=== PATIENT | male | born 1995 | race Caucasian/White ===

== ENCOUNTER 2021-05-28 17:24 | Emergency (ER) | payer OTHER ==
[2021-05-28] MEDS ORDERED: dexAMETHasone 10 MG/ML VIAL ONE (18:03)
[2021-05-28] MEDS ORDERED: NA CHLORIDE 0.9% 500 ML ONE (18:03)
[2021-05-28] MEDS ORDERED: DIPHENHYDRAMINE 50 MG/ML VIAL ONE (18:03)
[2021-05-28] MEDS ORDERED: METOCLOPRAMIDE 10 MG/2mL INJ ONE (18:03)
[2021-05-28 18:41] LABS: Absolute Lymphocytes (CBC) 1.5 K/uL (0.7-4.9); Basophils % 0.3 % (0-1.3); Hematocrit 46.2 % (39.6-49.0); Lymphocytes % 26.9 % (15.3-44.8); MPV 7.4 fL (7.6-11.3); RBC Red Blood Cell Count 5.23 M/uL (4.33-5.43)
--- NOTE | 2021-05-28 19:01 | RAD REPORT ---
EXAM DESCRIPTION: CT - Head Brain Wo Cont - 05/28/2021 6:55 pm CLINICAL HISTORY: headache, syncope COMPARISON: No comparisons TECHNIQUE: All CT scans are performed using dose optimization technique as appropriate and may inclu de automated exposure control or mA/KV adjustment according to patient size. FINDINGS: No intracranial hemorrhage, hydrocephalus or extra-axial fluid collection.No areas of brai n edema or evidence of midline shift. The paranasal sinuses and mastoids are clear. The calvarium is intact. IMPRESSION: No acute intracranial abnormality.
--- NOTE | 2021-05-28 19:01 | RAD REPORT ---
EXAM DESCRIPTION: RAD - Chest Single View - 05/28/2021 6:37 pm CLINICAL HISTORY: syncope COMPARISON: No comparisons FINDINGS: Lines: None. Lungs: No evidence of edema or pneumonia. Pleural: No significant pleural effusions or pneumothorax. Cardiac: The heart size is within normal limits. Bones: No acute fractures. Other: IMPRESSION: No acute cardiopulmonary disease.
[2021-05-28 19:14] LABS: ALT/SGPT 36 U/L (12-78); AST/SGOT 17 U/L (15-37); Albumin 3.9 g/dL (3.4-5.0); Alkaline Phosphatase 55 U/L (45-117); BUN Blood Urea Nitrogen 13 mg/dL (7-18); Bicarbonate 28 mmol/L (21-32); Bilirubin Direct 0.2 mg/dL (0-0.2); Bilirubin Total 0.6 mg/dL (0.2-1.0); Glucose Level 100 mg/dL (74-106); Magnesium 2.1 mg/dL (1.8-2.4); Potassium 4.3 mmol/L (3.5-5.1); Protein, Total 7.3 g/dL (6.4-8.2); Sodium Level 143 mmol/L (136-145); Troponin (Emerg Dept Use Only) < 0.02 ng/mL (0.0-0.045)
[2021-05-28 19:29] LABS: NT PRO-BNP < 5 pg/mL (<125)
--- NOTE | 2021-05-28 19:54 | RAD REPORT ---
EXAM DESCRIPTION: CT - Head angio - 05/28/2021 7:48 pm CLINICAL HISTORY: headache, syncope COMPARISON: <Comparisons> TECHNIQUE: CT angiography of the head was performed with MIPs. All CT scans are performed using dose optimization technique as appropriate and may include automated exposure control or mA/KV adjustment according to patient size. FINDINGS: Anterior circulation: No aneurysm or large vessel occlusion. No hemodynamically significant stenosis. No arteriovenous malf ormation identified. Posterior circulation: No aneurysm or large vessel occlusion. No hemodynamically significant stenosis. No arteriovenous malf ormation identified. IMPRESSION: No significant flow abnormality is detected.
--- NOTE | 2021-05-28 21:10 | EDPHYS ---
Physician Documentation [facility] Name: Adonis Covarrubias Age: 25 yrs Sex: Male : 1995 Arrival Date: 05/28/2021 Time: 17:26 Bed 15 Private MD: ED Physician Reggie Redd HPI: 05/28 17:55 This 25 yrs old Male presents to ER via Ambulatory with complaints of Passed jmm Out Prior To Arrival, Headache. 17:55 Onset: The symptoms/episode began/occurred acutely, just prior to arrival. Associated jmm injury: The patient did not suffer any apparent associated injury. Current symptoms: headache, that is severe. The patient has not experienced similar symptoms in the past. This this is a 25-year-old male with a history of migraines and presents emerged part with complaints of left retro-orbital headache which has been ongoing for the past few days but patient states that he passed out just prior to arrival and this is never occurred to him in the past. Patient states having a family history of aneurysms.. Historical: - Allergies: 17:39 No Known Allergies; ll1 - PMHx: 17:39 migraines; ll1 - Immunization history:: Adult Immunizations up to date, Client reports having NOT received the Covid vaccine. Flu vaccine status is unknown. - Social history:: Smoking status: Patient reports the use of cigarette tobacco products, smokes one pack cigarettes per day. Reported history of juuling and/or vaping. ROS: 17:55 Constitutional: Negative for fever, chills, and weight loss, Cardiovascular: Negative jmm for chest pain, palpitations, and edema, Respiratory: Negative for shortness of breath, cough, wheezing, and pleuritic chest pain. 17:55 Neuro: Positive for headache, syncope. 17:55 All other systems are negative. Exam: 17:55 Constitutional: This is a well developed, well nourished patient who is awake, alert, jmm and in no acute distress. Head/Face: atraumatic. Eyes: EOMI, no conjunctival erythema appreciated ENT: Moist Mucus Membranes Neck: Trachea midline, Supple Chest/axilla: Normal chest wall appearance and motion. Cardiovascular: Regular rate and rhythm. No edema appreciated Respiratory: Normal respirations, no respiratory distress appreciated Abdomen/GI: Non distended, soft Back: Normal ROM Skin: General appearance color normal MS/ Extremity: Moves all extremities, no obvious deformities appreciated, no edema noted to the lower extremities Neuro: Awake and alert, normal gait Psych: Behavior is normal, Mood is normal, Patient is cooperative and pleasant Vital Signs: 17:37 BP 135 / 81; Pulse 78; Resp 17; Temp 98.0; Pulse Ox 97% ; Weight 74.84 kg; Height 5 ft. ll1 10 in. (177.80 cm); Pain 8/10; 18:54 BP 117 / 76; Pulse 75; Resp 17; Pulse Ox 98% on R/A; jt3 19:38 BP 110 / 66; Pulse 88; Resp 20; Temp 98.0(O); Pulse Ox 99% on R/A; Pain 2/10; kc4 21:25 BP 118 / 78; Pulse 80; Resp 20; Temp 98.7; Pulse Ox 99% on R/A; Pain 0/10; kc4 17:37 Body Mass Index 23.67 (74.84 kg, 177.80 cm) ll1 MDM: 17:55 Patient medically screened. [facility] 21:08 Data reviewed: vital signs, nurses notes. Counseling: I had a detailed discussion with latesha the patient and/or guardian regarding: the historical points, exam findings, and any diagnostic results supporting the discharge/admit diagnosis, lab results, the need for outpatient follow up, to return to the emergency department if symptoms worsen or persist or if there are any questions or concerns that arise at home. ED course: Patient states feeling much better. I do not currently suspect subarachnoid or meningitis. Most likely cluster headache. Patient will be given follow-up information for neurology and otherwise given strict return precautions. Patient understood agrees plan of care.. 05/28 17:55 Order name: Basic Metabolic Panel; Complete Time: 19:49 [facility] 05/28 17:55 Order name: CBC with Diff; Complete Time: 18:53 [facility] 05/28 17:55 Order name: LFT's; Complete Time: 19:49 [facility] 05/28 17:55 Order name: Magnesium; Complete Time: 19:49 [facility] 05/28 17:55 Order name: NT PRO-BNP; Complete Time: 19:49 [facility] 05/28 17:55 Order name: PT-INR; Complete Time: 19:04 [facility] 05/28 17:55 Order name: Troponin (emerg Dept Use Only); Complete Time: 19:49 [facility] 05/28 17:55 Order name: XRAY Chest (1 view); Complete Time: 19:04 [facility] 05/28 17:55 Order name: D-Dimer; Complete Time: 19:04 [facility] 05/28 17:55 Order name: CT Head Brain wo Cont; Complete Time: 19:04 [facility] 05/28 19:18 Order name: CT Head Angio; Complete Time: 19:57 [facility] 05/28 17:55 Order name: EKG; Complete Time: 17:56 [facility] 05/28 17:55 Order name: Cardiac monitoring; Complete Time: 18:27 [facility] 05/28 17:55 Order name: EKG - Nurse/Tech; Complete Time: 18:27 [facility] 05/28 17:55 Order name: IV Saline Lock; Complete Time: 18:28 [facility] 05/28 17:55 Order name: Labs collected and sent; Complete Time: 18:28 [facility] 05/28 17:55 Order name: O2 Per Protocol; Complete Time: 18:28 [facility] 05/28 17:55 Order name: O2 Sat Monitoring; Complete Time: 18:28 [facility] Administered Medications: 18:25 Drug: NS 0.9% 500 ml Route: IV; Rate: bolus; Site: left antecubital; jt3 21:28 Follow up: Response: No adverse reaction; IV Status: Completed infusion kc4 18:25 Drug: Reglan (metoCLOPramide) 20 mg Route: IVP; Site: left antecubital; jt3 21:28 Follow up: Response: No adverse reaction kc4 18:25 Drug: diphenhydrAMINE 12.5 mg Route: IVP; Site: left antecubital; jt3 21:28 Follow up: Response: No adverse reaction kc4 18:25 Drug: Decadron - Dexamethasone 10 mg Route: IVP; Site: left antecubital; jt3 21:27 Follow up: Response: No adverse reaction kc4 Disposition: 05/29 07:06 Co-signature as Attending Physician, Reggie Redd MD I agree with the assessment and rn plan of care. Attestation: The patient's history, exam findings, diagnostics, and a summary of any interventions or procedures was reviewed in detail with Cornelius BAHENA. Disposition Summary: 05/28/21 21:09 Discharge Ordered Location: Home jm Condition: Stable jmm Diagnosis - Headache jmm Followup: jm - With: Francis Hoffman MD - When: 2 - 3 days - Reason: Recheck today's complaints, Continuance of care, Re-evaluation by your physician Discharge Instructions: - Discharge Summary Sheet jmm - Migraine Headache jmm Forms: - Medication Reconciliation Form jm - Thank You Letter jmm - Antibiotic Education jmm - Prescription Opioid Use jm Signatures: Dispatcher [employer] EDCornelius Manriquez PA PA jmm Reggie Redd MD MD rn Lewis, Lynsay, RN RN ll1 Gorge Elizabeth RN RN jt3 Teressa Garza 4
--- NOTE | 2021-05-28 21:10 | ER ---
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 Migraines worse than usual for 2 ll[address] weeks, [address] worse today. L eye blurred vision. Coronavirus screen: Vaccine status: Patient reports being unvaccinated. Client denies travel out of the [place] in the last 14 days. Ebola Screen: Patient denies travel to an Ebola-affected area in the 21 days before illness onset. Initial Sepsis Screen: Does the patient meet any 2 criteria? No. Patient's initial sepsis screen is negative. Does the patient have a suspected source of infection? No. Patient's initial sepsis screen is negative. Risk Assessment: Do you want to hurt yourself or someone else? Patient reports no desire to harm self or others. Onset of symptoms was May 14, 2020. 17:37 Method Of Arrival: Ambulatory ll1 17:37 Acuity: MATTHEW 3 ll1 19:43 Note pt transported to CT for CT angio. kc4 Triage Assessment: 21:26 Headache History: Other No headache noted. General: Appears in no apparent distress. kc4 comfortable. Pain: Also complains of no other associated symptoms. Historical: - Allergies: 17:39 No Known Allergies; ll1 - PMHx: 17:39 migraines; ll1 - Immunization history:: Adult Immunizations up to date, Client reports having NOT received the Covid vaccine. Flu vaccine status is unknown. - Social history:: Smoking status: Patient reports the use of cigarette tobacco products, smokes one pack cigarettes per day. Reported history of juuling and/or vaping. Screenin:26 Abuse screen: Denies threats or abuse. Denies injuries from another. Nutritional jt3 screening: No deficits noted. Tuberculosis screening: No symptoms or risk factors identified. Fall Risk None identified. Assessment: 18:26 General: Appears in no apparent distress. Behavior is calm, cooperative. Pain: jt3 Complains of pain in face Pain does not radiate. Pain currently is 8 out of 10 on a pain scale. Quality of pain is described as throbbing, Pain began 2-3 days ago. Neuro: Reports headache in entire a syncopal episode. Cardiovascular: No deficits noted. Respiratory: No deficits noted. GI: No deficits noted. 18:55 Reassessment: Patient states feeling better. Patient states symptoms have improved. jt3 Vital Signs: 17:37 BP 135 / 81; Pulse 78; Resp 17; Temp 98.0; Pulse Ox 97% ; Weight 74.84 kg; Height 5 ft. ll1 10 in. (177.80 cm); Pain 8/10; 18:54 BP 117 / 76; Pulse 75; Resp 17; Pulse Ox 98% on R/A; jt3 19:38 BP 110 / 66; Pulse 88; Resp 20; Temp 98.0(O); Pulse Ox 99% on R/A; Pain 2/10; kc4 21:25 BP 118 / 78; Pulse 80; Resp 20; Temp 98.7; Pulse Ox 99% on R/A; Pain 0/10; kc4 17:37 Body Mass Index 23.67 (74.84 kg, 177.80 cm) ll1 ED Course: 17:26 Patient arrived in ED. as 17:37 Arm band placed on. ll1 17:39 Triage completed. 1 17:51 Cornelius Rouse PA is PHCP. [facility] 17:51 Reggie Redd MD is Attending Physician. [facility] 17:56 Gorge Elizabeth, RN is Primary Nurse. jt3 18:26 Patient has correct armband on for positive identification. Bed in low position. Call jt3 light in reach. Side rails up X2. 18:26 No provider procedures requiring assistance completed. Inserted saline lock: 20 gauge jt3 in left antecubital area, using aseptic technique. Blood collected. 18:37 XRAY Chest (1 view) In Process Unspecified. EDMS 18:38 EKG done, by ED staff, reviewed by Cornelius BAHENA. mh5 18:39 Warm blanket given. laboratory monitor on. Pulse ox on. NIBP on. mh5 18:55 CT Head Brain wo Cont In Process Unspecified. EDMS 19:48 CT Head Angio In Process Unspecified. EDMS 21:09 Francis Hoffman MD is Referral Physician. [facility] 21:26 IV discontinued, intact, bleeding controlled, No redness/swelling at site. Pressure kc4 dressing applied. Administered Medications: 18:25 Drug: NS 0.9% 500 ml Route: IV; Rate: bolus; Site: left antecubital; jt3 21:28 Follow up: Response: No adverse reaction; IV Status: Completed infusion kc4 18:25 Drug: Reglan (metoCLOPramide) 20 mg Route: IVP; Site: left antecubital; jt3 21:28 Follow up: Response: No adverse reaction kc4 18:25 Drug: diphenhydrAMINE 12.5 mg Route: IVP; Site: left antecubital; jt3 21:28 Follow up: Response: No adverse reaction kc4 18:25 Drug: Decadron - Dexamethasone 10 mg Route: IVP; Site: left antecubital; jt3 21:27 Follow up: Response: No adverse reaction kc4 Outcome: 21:09 Discharge ordered by . latesha 21:27 Discharged to home ambulatory, with significant other. kc4 21:27 Condition: improved 21:27 Discharge instructions given to patient, Instructed on discharge instructions, follow up and referral plans. Demonstrated understanding of instructions, follow-up care. 21:28 Patient left the ED. kc4 Signatures: Dispatcher [employer] EDMS Cornelius Rouse PA PA jmm Martinez, Amelia as Martinez, Maria [facility] Megan Araiza RN RN 1 Teressa Garza kc4 Gorge Elizabeth RN RN jt3
[2021-05-28 23:03] VITALS: O2SAT 99
[2021-05-28 23:05] VITALS: BP 118/78; TEMP 98.7
--- NOTE | 2021-05-29 16:58 | EKG ---
Test Date: 2021-05-28 Test Time: 18:27:15 Vice President Safety: ESTRELLA MEASUREMENT RESULTS: Intervals: Rate: 65 HI: 110 QRSD: 88 QT: 370 QTc: 384 [place]: P: 29 HI: 110 QRS: 85 T: 59 INTERPRETIVE STATEMENTS: Sinus rhythm with short HI Otherwise normal ECG No previous ECG available for comparison Electronically Signed On 05-29-21 16:57:04 FINANCIAL AID OFFICER by Mychal Duque
== END 2021-05-28 21:28 | disposition home or self-care (01) ==
LOC: ER 17:24
DX: R51.9 Headache, unspecified (principal); R55 Syncope and collapse; F17.210 Nicotine dependence, cigarettes, uncomplicated
CPT/HCPCS: 93005; 85025; 80048; 36415; 83735; 85610; 85379; 80076; 84484; 83880; 70450; 70496; 71045; Q9967; J2765; J1200; J1100; J7040

== ENCOUNTER 2021-07-03 17:22 | Emergency (ER) | payer OTHER ==
[2021-07-03 17:42] LABS: Urine Blood 3+ (Negative); Urine Glucose Negative (Negative); Urine Protein Negative (Negative)
[2021-07-03 20:10] LABS: Absolute Lymphocytes (CBC) 1.7 K/uL (0.7-4.9); Basophils % 0.3 % (0-1.3); Hematocrit 45.8 % (39.6-49.0); MPV 7.5 fL (7.6-11.3); RBC Red Blood Cell Count 5.16 M/uL (4.33-5.43)
[2021-07-03 20:51] LABS: Protime INR 1.09
--- NOTE | 2021-07-03 21:50 | RAD REPORT ---
EXAM DESCRIPTION: CTAbdomen Pelvis W Contrast - 07/03/2021 9:29 pm CLINICAL HISTORY: HEMATURIA COMPARISON: No comparisons TECHNIQUE: CT of the abdomen and pelvis was performed. All CT scans are performed using dose optimization technique as appropriate and may include automated exposure control or mA/KV adjustment according to patient size. FINDINGS: Lower chest: No acute abnormality. Liver: No acute abnormality or suspicious lesions. Biliary: No biliary ductal dilatation. Stomach: No significant focal abnormality. Duodenum: No significant focal abnormality. Pancreas: No significant abnormality. Spleen: No significant abnormality. Adrenal: No suspicious lesions. Kidney/ureter: No hydronephrosis. No renal calculi. Retroperitoneum: No retroperitoneal adenopathy. Vascular: No aneurysm. Bowel: No significant focal abnormality. Normal appendix. No specific findings to explain hematuria. Peritoneum: No ascites or free air. Bladder: Grossly unremarkable. Reproductive: No adnexal masses. Bones: No acute fracture. Other: n/a IMPRESSION: No acute intra-abdominal or pelvic finding. Normal appendix. No specific findings to exp vanessa hematuria.
[2021-07-03 22:05] LABS: Potassium 3.8 mmol/L (3.5-5.1)
--- NOTE | 2021-07-03 22:13 | ER ---
Nurse's Notes [facility] Name: Adonis Covarrubias Age: 25 yrs Sex: Male : 1995 Arrival Date: 07/03/2021 Time: 17:25 Bed 24 Private MD: Diagnosis: Hematuria, unspecified Presentation: 07/03 17:29 Chief complaint: Patient states: noticed yesterday blood in my urine and my tw2 ejaculation. painful urination. no kidney pain. [facility] but [facility] never got the [facility] back. i did have unprotected sex a couple of months ago. Coronavirus screen: At this time, the client does not indicate any symptoms associated with coronavirus-19. Ebola Screen: Patient denies travel to an Ebola-affected area in the 21 days before illness onset. No symptoms or risks identified at this time. Initial Sepsis Screen: Does the patient meet any 2 criteria? No. Patient's initial sepsis screen is negative. Does the patient have a suspected source of infection? No. Patient's initial sepsis screen is negative. Risk Assessment: Do you want to hurt yourself or someone else? Patient reports no desire to harm self or others. Onset of symptoms was July 03, 2021. 17:29 Method Of Arrival: Ambulatory tw2 17:29 Acuity: MATTHEW 3 tw2 Triage Assessment: 17:35 General: Appears in no apparent distress. Behavior is calm, cooperative, appropriate tw2 for age. Pain: Denies pain. : Reports burning with urination, blood in urine. Historical: - Allergies: 17:35 No Known Allergies; tw2 - Home Meds: 17:35 unknown migraine medicine [Active]; tw2 - PMHx: 17:35 Migraines; tw2 - PSHx: 17:35 None; tw2 - Immunization history:: Client reports having NOT received the Covid vaccine. - Social history:: Smoking status: Patient reports the use of cigarette tobacco products, smokes one pack cigarettes per day. Reported history of juuling and/or vaping. Patient uses alcohol, occasionally. - Family history:: not pertinent. - Hospitalizations: : No recent hospitalization is reported. Screenin:44 Abuse screen: Denies threats or abuse. Nutritional screening: No deficits noted. tw2 Tuberculosis screening: No symptoms or risk factors identified. Fall Risk None identified. Assessment: 19:12 Reassessment: The provider is at the [facility].. iw Vital Signs: 17:29 BP 132 / 80; Pulse 96; Resp 17; Temp 97.9(TE); Pulse Ox 100% on R/A; Weight 76.2 kg; tw2 Pain 5/10; 19:10 BP 117 / 76; Pulse 82; Resp 16; Temp 98.6; Pulse Ox 100% ; iw 20:29 BP 125 / 84; Pulse 72; Resp 16; Pulse Ox 98% 0 lpm ; iw 22:25 BP 122 / 80; Pulse 80; Resp 18; Pulse Ox 98% 0 lpm ; Pain 0/10; sv1 ED Course: 17:25 Patient arrived in ED. mr 17:33 Triage completed. tw2 17:34 Arm band placed on. tw2 19:04 Reggie Redd MD is Attending Physician. rn 19:10 Adele Kaye RN is Primary Nurse. iw 19:10 Patient has correct armband on for positive identification. Bed in low position. Call iw light in reach. Side rails up X 1. 19:34 Protime (+inr) Sent. iw 19:34 Ptt, Activated Sent. iw 19:34 Basic Metabolic Panel Sent. iw 19:34 CBC with Diff Sent. iw 19:35 Urine Microscopic Only Sent. iw 21:28 CT Abd/Pelvis - IV Contrast Only In Process Unspecified. EDMS 22:24 No provider procedures requiring assistance completed. IV discontinued. sv1 Administered Medications: 22:15 Drug: Cipro (ciprofloxacin) 500 mg Route: PO; sv1 22:23 Follow up: Response: No adverse reaction sv1 Outcome: 22:12 Discharge ordered by . rn 22:24 Discharged to home ambulatory. sv1 22:24 Condition: good 22:24 Discharge instructions given to patient. 22:26 Patient left the ED. sv1 Signatures: Dispatcher [employer] EDMS Maria Dolores Willson mr Adele Kaye, STEVE RN iw Reggie Redd MD MD rn Wise, Tara, RN RN tw2 Adonis Vitale RN RN sv1 Corrections: (The following items were deleted from the chart) 17:43 17:29 Chief complaint: Patient states: noticed yesterday blood in my urine. painful tw2 urination and blood in it. no kidney pain. [facility] but [facility] never got the [facility] back. i did have unprotected sex a couple of months ago tw2
--- NOTE | 2021-07-03 22:13 | EDPHYS ---
Physician Documentation [facility] Name: Adonis Covarrubias Age: 25 yrs Sex: Male : 1995 Arrival Date: 07/03/2021 Time: 17:25 Bed 24 Private MD: ED Physician Reggie Redd HPI: 07/03 19:17 This 25 yrs old Male presents to ER via Ambulatory with complaints of Urinary Problem. rn 19:17 The patient presents with urinary symptoms, hematuria. Onset: The symptoms/episode rn began/occurred yesterday. Modifying factors: The symptoms are alleviated by nothing, the symptoms are aggravated by urinating. Associated signs and symptoms: Pertinent positives: dysuria, hematuria, Pertinent negatives: fever. Severity of symptoms: At their worst the symptoms were mild, in the emergency department the symptoms are unchanged. The patient has not experienced similar symptoms in the past. The patient has been recently seen by a physician:. Pt reports 2 weeks of dysuria, seen at [place] for dysuria andtold labs are back but "can't give him results" and "treatable", but doesn't know what they meant. Reports began with hematuria yesterday, no trauma, no fever, has chronic back pain but no new back pain. NO hx of kidney stones. No weight loss. No anticoagulation. . Historical: - Allergies: 17:35 No Known Allergies; tw2 - Home Meds: 17:35 unknown migraine medicine [Active]; tw2 - PMHx: 17:35 Migraines; tw2 - PSHx: 17:35 None; tw2 - Immunization history:: Client reports having NOT received the Covid vaccine. - Social history:: Smoking status: Patient reports the use of cigarette tobacco products, smokes one pack cigarettes per day. Reported history of juuling and/or vaping. Patient uses alcohol, occasionally. - Family history:: not pertinent. - Hospitalizations: : No recent hospitalization is reported. ROS: 19:20 Constitutional: Negative for fever, chills, and weight loss, Eyes: Negative for injury, rn pain, redness, and discharge, Neck: Negative for injury, pain, and swelling, Cardiovascular: Negative for chest pain, palpitations, and edema, Respiratory: Negative for shortness of breath, cough, wheezing, and pleuritic chest pain, Abdomen/GI: Negative for abdominal pain, nausea, vomiting, diarrhea, and constipation, Back: Negative for injury : + dysuria and hematuria. MS/Extremity: Negative for injury and deformity, Skin: Negative for injury, rash, and discoloration, Neuro: Negative for headache, weakness, numbness, tingling, and seizure. Exam: 19:20 Constitutional: This is a well developed, well nourished patient who is awake, alert, rn and in no acute distress. Ambulatory to room without difficulty or assistance. Head/Face: Normocephalic, atraumatic. Eyes: Periorbital areas with no swelling, redness, or edema. Cardiovascular: Regular rate and rhythm. No pulse deficits. Respiratory: No increased work of breathing, no retractions or nasal flaring. Abdomen/GI: soft, non-tender Back: No spinal tenderness. No costovertebral tenderness. Full range of motion. Skin: Warm, dry MS/ Extremity: Pulses equal, no cyanosis. Neuro: Awake and alert, GCS 15, oriented to person, place, time, and situation. Cranial nerves II-XII grossly intact. Motor strength 5/5 in all extremities. Sensory grossly intact. Cerebellar exam normal. Normal gait. Vital Signs: 17:29 BP 132 / 80; Pulse 96; Resp 17; Temp 97.9(TE); Pulse Ox 100% on R/A; Weight 76.2 kg; tw2 Pain 5/10; 19:10 BP 117 / 76; Pulse 82; Resp 16; Temp 98.6; Pulse Ox 100% ; iw 20:29 BP 125 / 84; Pulse 72; Resp 16; Pulse Ox 98% 0 lpm ; iw 22:25 BP 122 / 80; Pulse 80; Resp 18; Pulse Ox 98% 0 lpm ; Pain 0/10; sv1 MDM: 19:04 Patient medically screened. rn 22:10 Differential diagnosis: nonspecific abdominal pain, UTI, urethritis, renal cancer, rn cystitis. Data reviewed: vital signs, nurses notes, lab test result(s), radiologic studies, CT scan, and as a result, I will discharge patient. Counseling: I had a detailed discussion with the patient and/or guardian regarding: the historical points, exam findings, and any diagnostic results supporting the discharge/admit diagnosis, lab results, radiology results, the need for outpatient follow up, to return to the emergency department if symptoms worsen or persist or if there are any questions or concerns that arise at home. 22:11 Response to treatment: the patient's symptoms have mildly improved after treatment, and rn as a result, I will discharge patient. Special discussion: I discussed with the patient/guardian in detail that at this point there is no indication for admission to the hospital. It is understood, however, that if the symptoms persist or worsen the patient needs to return immediately for re-evaluation. Based on the history and exam findings, there is no indication for further emergent testing or inpatient evaluation. I discussed with the patient/guardian the need to see the urologist for further evaluation of the symptoms. ED course: CT and blood work without obvious cause of hematuria. Given patient's young age and no trauma, most likely urinary tract infection. [facility] and told [facility]. Patient denies any penile discharge or rash or swelling. Still denies any testicular swelling or pain. Will treat with antibiotics and told to call the [facility] tomorrow for the results that he was not given today.. 07/03 17:41 Order name: Urine Dipstick-Ancillary; Complete Time: 19:04 EDMS 07/03 19:15 Order name: Urine Microscopic Only rn 07/03 19:15 Order name: CBC with Diff; Complete Time: 20:27 rn 07/03 19:15 Order name: Basic Metabolic Panel; Complete Time: 22:06 rn 07/03 19:15 Order name: Protime (+inr); Complete Time: 20:57 rn 07/03 19:15 Order name: Ptt, Activated; Complete Time: 20:57 rn 07/03 19:15 Order name: IV Start; Complete Time: 19:34 rn 07/03 19:15 Order name: CT Abd/Pelvis - IV Contrast Only; Complete Time: 21:56 rn 07/03 19:16 Order name: Urine Microscopic Only EDMS Administered Medications: 22:15 Drug: Cipro (ciprofloxacin) 500 mg Route: PO; sv1 22:23 Follow up: Response: No adverse reaction sv1 Disposition Summary: 07/03/21 22:12 Discharge Ordered Location: Home rn Problem: new rn Symptoms: have improved rn Condition: Stable rn Diagnosis - Hematuria, unspecified rn Followup: rn - With: Private Physician - When: As needed - Reason: Recheck today's complaints, Re-evaluation by your physician Discharge Instructions: - Discharge Summary Sheet rn - Hematuria, Adult rn Forms: - Medication Reconciliation Form rn - Thank You Letter rn - Antibiotic rn peritoneal dialysis - Prescription Opioid Use rn Prescriptions: - Cipro 500 mg Oral Tablet - take 1 tablet by ORAL route every 12 hours for 10 days; 20 tablet; Refills: 0, rn Product Selection Permitted Signatures: Dispatcher [employer] EDMT Reggie Redd MD MD rn Wise, Tara, RN RN tw2 Adonis Vitale RN RN sv1 Corrections: (The following items were deleted from the chart) 19:21 19:17 Pt reports 2 weeks of dysuria, seen at . rn rn
[2021-07-03] MEDS ORDERED: CIPROFLOXACIN HCL 500 MG TAB ONE (22:18)
[2021-07-03 22:32] LABS: Urine Bacteria <20 /HPF (NONE SEEN); Urine RBC <5 /HPF (NONE SEEN)
[2021-07-03 22:36] VITALS: TEMP 98.6
[2021-07-03 22:37] VITALS: O2SAT 98
[2021-07-03 22:38] VITALS: BP 122/80
== END 2021-07-03 22:26 | disposition home or self-care (01) ==
LOC: ER 17:22
DX: R31.9 Hematuria, unspecified (principal); F17.210 Nicotine dependence, cigarettes, uncomplicated
CPT/HCPCS: 87088; 85025; 87086; 80048; 36415; 85610; 85730; 74177; 99284; Q9967; 81003; 81015

== ENCOUNTER 2021-12-05 13:54 | Emergency (ER) | payer OTHER ==
[2021-12-05] MEDS ORDERED: dexAMETHasone 10 MG/ML VIAL ONE (15:42)
--- NOTE | 2021-12-05 16:30 | ER ---
Nurse's Notes [facility] Name: Adonis Covarrubias Age: 26 yrs Sex: Male : 1995 Arrival Date: 12/05/2021 Time: 13:56 Bed DIS4 Private MD: Diagnosis: Envenomation of the right foot by hymenoptera Presentation: 12/05 15:01 Chief complaint: Patient states: right foot swelling after wasp sting three days ago. iw Coronavirus screen: At this time, the client does not indicate any symptoms associated with coronavirus-19. Ebola Screen: Patient negative for fever greater than or equal to 101.5 degrees Fahrenheit, and additional compatible Ebola Virus Disease symptoms Patient denies exposure to infectious person. Patient denies travel to an Ebola-affected area in the 21 days before illness onset. No symptoms or risks identified at this time. Initial Sepsis Screen: Does the patient meet any 2 criteria? No. Patient's initial sepsis screen is negative. Does the patient have a suspected source of infection? No. Patient's initial sepsis screen is negative. Risk Assessment: Do you want to hurt yourself or someone else? Patient reports no desire to harm self or others. Onset of symptoms was December 02, 2021. 15:01 Method Of Arrival: Ambulatory iw 15:01 Acuity: MATTHEW 4 iw Historical: - Allergies: 16:17 No Known Allergies; iw Vital Signs: 15:01 BP 114 / 69; Pulse 84; Resp 16; Pulse Ox 98% on R/A; iw ED Course: 13:56 Patient arrived in ED. mr 14:55 [facility] 14:55 Danis Tripp MD is Attending Physician. [facility] 15:01 Adele Kaye, STEVE is Primary Nurse. 15:02 Triage completed. iw 15:02 Arm band placed on. iw 15:26 EKG done, by ED staff, reviewed by Danis Tripp MD. mh5 Administered Medications: 15:42 Drug: Decadron (dexamethasone) 10 mg Route: IM; Site: left deltoid; iw Outcome: 16:29 Discharge ordered by . [facility] 16:44 Patient left the ED. Signatures: Cornelius Rouse PA PA Maria Dolores Patino mr Adele Kaye, RN RN iw Chance, [facility]5
--- NOTE | 2021-12-05 16:30 | EDPHYS ---
Physician Documentation [facility] Name: Adonis Covarrubias Age: 26 yrs Sex: Male : 1995 Arrival Date: 12/05/2021 Time: 13:56 Bed DIS4 Private MD: ED Physician Danis Tripp HPI: 12/05 15:09 This 26 yrs old Male presents to ER via Ambulatory with complaints of Insect Bite, jmm Allergic Reaction. 15:09 The patient presents with pain, that is acute. Onset: The symptoms/episode jmm began/occurred acutely, 3 day(s) ago. Modifying factors: The symptoms are alleviated by nothing. the symptoms are aggravated by nothing. Is a 26-year-old male with no known chronic medical conditions the presents emerged part with complaints of swelling to the right foot. Symptoms began acutely after being stung by a wasp. Patient states that he is for his continued swell in spite of elevation. Patient also developed some palpitations earlier today and was advised to go to the ER for further evaluation.. Historical: - Allergies: 16:17 No Known Allergies; iw ROS: 15:09 Constitutional: Negative for fever, chills, and weight loss, Respiratory: Negative for jmm shortness of breath, cough, wheezing, and pleuritic chest pain. 15:09 Cardiovascular: Positive for chest pain, palpitations. 15:09 All other systems are negative. Exam: 15:09 Constitutional: This is a well developed, well nourished patient who is awake, alert, jmm and in no acute distress. Head/Face: atraumatic. Eyes: EOMI, no conjunctival erythema appreciated ENT: Moist Mucus Membranes Neck: Trachea midline, Supple Chest/axilla: Normal chest wall appearance and motion. Cardiovascular: Regular rate and rhythm. No edema appreciated Respiratory: Normal respirations, no respiratory distress appreciated Abdomen/GI: Non distended, soft Back: Normal ROM 15:09 Musculoskeletal/extremity: Swelling noted to the right foot, full dorsalis pedis pulse, compartments are soft, neurovascular intact. 15:09 Skin: Insect bite noted to the right foot. 15:09 Neuro: Orientation: is normal, Mentation: is normal, Memory: is normal. 15:09 Psych: Behavior/mood is pleasant, cooperative. Vital Signs: 15:01 BP 114 / 69; Pulse 84; Resp 16; Pulse Ox 98% on R/A; iw MDM: 15:09 Patient medically screened. [facility] 16:28 Data reviewed: vital signs, nurses notes. Counseling: I had a detailed discussion with latesha the patient and/or guardian regarding: the historical points, exam findings, and any diagnostic results supporting the discharge/admit diagnosis, the need for outpatient follow up, to return to the emergency department if symptoms worsen or persist or if there are any questions or concerns that arise at home. ED course: Patient is alert nontoxic appearance NAD. Patient states symptoms of improved.. 12/05 15:10 Order name: EKG - Nurse/Tech; Complete Time: :26 [facility] Administered Medications: 15:42 Drug: Decadron (dexamethasone) 10 mg Route: IM; Site: left deltoid; iw Disposition Summary: 12/05/21 16:29 Discharge Ordered Location: Home [facility] Condition: Stable [facility] Diagnosis - Envenomation of the right foot by hymenoptera [facility] Followup: [facility] - With: Private Physician - When: 2 - 3 days - Reason: Recheck today's complaints, Continuance of care, Re-evaluation by your physician Discharge Instructions: - Discharge Summary Sheet [facility] - Bee, Wasp, or Hornet Sting, Adult [facility] Forms: - Medication Reconciliation Form [facility] - Thank You Letter [facility] - Antibiotic Education [facility] - Prescription Opioid Use [facility] Prescriptions: - Cephalexin 500 mg Oral Capsule - take 1 capsule by ORAL route every 6 hours for 10 days; 40 capsule; Refills: 0, [facility] Product Selection Permitted - Prednisone 20 mg Oral Tablet - take 3 tablets by ORAL route once daily for 5 days; 15 tablet; Refills: 0, [facility] Product Selection Permitted Signatures: Cornelius Rouse PA PA jmm Williams, Irene, RN RN iw
[2021-12-05 16:47] VITALS: BP 114/69; O2SAT 98
--- NOTE | 2021-12-06 17:59 | EKG ---
Test Date: 2021-12-05 Test Time: 15:29:06 [employer]: ESTRELLA MEASUREMENT RESULTS: Intervals: Rate: 74 DC: 112 QRSD: 98 QT: 364 QTc: 404 [place]: P: 28 DC: 112 QRS: 83 T: 19 INTERPRETIVE STATEMENTS: Normal sinus rhythm Normal ECG Compared to ECG 05/28/2021 18:27:15 Short DC interval no longer present Electronically Signed On 12-06-21 17:57:34 CDT by Yash Rm
== END 2021-12-05 16:44 | disposition home or self-care (01) ==
LOC: ER 13:54
DX: T63.461A Toxic effect of venom of wasps, accidental (unintentional), initial encounter (principal)
CPT/HCPCS: 93005; 96372; 99283; J1100